=== PATIENT | female | born 1990 | race Caucasian/White ===

== ENCOUNTER 2023-03-05 13:50 | Inpatient (IN) | payer BC, SELFPAY ==
[2023-03-05] VITALS (44 sets, daily range): BP systolic 127–160; BP diastolic 71–103; PULSE 81–105; TEMP 35.9–37.3; O2SAT 98–100; BMI 31.8
[2023-03-05 15:14] LABS: Absolute Neutrophil Count 7.9 X10^3/uL (2.0-7.7); Basophil# 0.02 X10^3/uL; Basophil% 0.2 % (0-1); Eosinophil# 0.03 X10^3/uL; Eosinophils% 0.3 % (0-5); Hematocrit 39.3 % (37-47); Hemoglobin 12.9 g/dL (12.0-15.0); Lymphocyte % 18.2 % (19-41); Mean Corp Hgb Conc 32.8 g/dL (32-36); Mean Corpuscular Hgb 30.5 pg (27.0-32.0); Mean Corpuscular Volume 92.9 fL (81-99); Mean Platelet Vol. 10.4 fl (6.2-12.0); Monocyte# 0.58 X10^3/uL; Monocyte% 5.6 % (0-10); NRBC Flagged by Analyzer 0 % (0-5); Neutrophil # 7.85 X10^3/uL (2.7-7.7); Neutrophil % 75.1 % (47-70); Platelet Count 259 K/mm3 (150-450); RBC Distribution Width CV 12.9 % (11.6-14.6); RBC Distribution Width SD 43.7 fl (35.1-43.9); Red Blood Count 4.23 M/mm3 (4.2-5.4); White Blood Count 10.4 K/mm3 (4.4-11.0)
[2023-03-05 15:27] LABS: AST(SGOT) 13 U/L (15-37); Alanine Aminotransfer ALT/SGPT 8 U/L (13-56); Creatinine, Serum 0.72 mg/dL (0.55-1.02); EST Glomerular Filtration Rate 100 mL/min (>60); Est Glom Filt Rate - Afr Amer 121 mL/min (>60); Estimated Creatinine Clearance 118.31 ml/min; Uric Acid 4.7 mg/dL (2.6-6.0)
[2023-03-05 15:29] LABS: Protein, Urine (Random) 12.1 mg/dL (<11.9); Protein:Creat Ratio 297 mg/g CRE (0-200)
[2023-03-05] MEDS: Lactated Ringers 1,000 ML 50 ML IV (15:30)
[2023-03-05 15:47] LABS: Syphilis Antibodies Non-reactive
--- NOTE | 2023-03-05 15:56 | HP.PCM.OB_ITS ---
HPI - General General Date of Admission: 03/05/23 HPI Narrative EDMOND SIMONS, is a 33 F who presents at 40w3d for medically indicated induction of labor for elevated blood pressure. Denies headache, visual changes, RUQ pain. Maternal Data Information USHA Calculator Estimated Delivery Date Method Current WG Current Estimate 03/02/23 Manual 40w 3d PFSH PFSH Medical History (Updated 03/05/23 @ 16:32 by Opal Coates CNM) Autoimmune disease Gestational HTN Thyroid disorder Home Medications levothyroxine 75 mcg tablet 75 mcg PO DAILY thyroid 03/05/23 [History Last Taken 03/05/23 06:00] mv-min [id number] PO 03/05/23 [History Last Taken 03/05/23 06:00] Allergy/AdvReac Type Severity Reaction Status Date / Time Penicillins Allergy Mild Rash Verified 03/05/23 14:30 Surgical History (Updated 03/05/23 @ 15:38 by Herlinda Garland) History of surgery Social History Smoking Status: Never smoker History Elective abortions Hx Para 1 Spontaneous abortions Hx # Term Pregnancies Ectopic pregnancies Hx # Pregnancies Multiple births # of living children NST FHR Rate Baby A Baseline: 125 Variability:: Moderate Accelerations:: 15 x 15 Decelerations:: None FHR Category:: Category I Uterine Activity:: None Vital Signs Vital Signs Vital Signs: 03/05/23 14:58 03/05/23 14:58 03/05/23 14:59 Temperature Temperature Source Temporal Pulse Rate 94 Blood Pressure 129/90 H BP Systolic 129 BP Diastolic 90 03/05/23 14:59 Temperature 98.0 F Temperature Source Pulse Rate Blood Pressure BP Systolic BP Diastolic Weight Weight: 216 lb Body Mass Index (BMI) 31.8 Physical Exam Const alert and oriented x3 General Appearance: cooperative Orientation / Consciousness: awake, oriented to person, oriented to place and oriented to time Exam Limitations: no limitations HEENT normocephalic Head and Scalp: normal to inspection, normocephalic and atraumatic Face and Sinus: normal facial exam Eyes General Eye: normal appearance of both eyes Neck full ROM Chest Chest: symmetrical chest wall rise Resp normal respiratory effort and normal air movement Auscultation: clear to auscultation bilaterally Cardio regular rate, regular rhythm, S1 normal heart sound, S2 normal heart sound, no murmurs, no rub, no gallops and no clicks GI normal to inspection, nondistended, normoactive bowel sounds and non-tender appearance of the vagina normal Bladder / Kidney Exam: no CVA tenderness Manual OB Exam: presentation cephalic, dilated 3cm, effaced 80%, station - 2 and other carmichael catheter with stylus inserted through cervix without difficulty. Amniotic Fluid: no amniotic fluid noted Back/Spine normal ROM Extremity normal to inspection and full ROM Skin no rashes or lesions noted Neuro oriented x3, CN's II-XII intact bilaterally and moves all extremities Sensorium / Orientation: awake, alert and oriented to person Motor Exam: clonus absent Deep Tendon Reflexes: Rt Patellar (L4): 2+ and Lt Patellar (L4): 2+ Labs Labs Labs: Blood Type Pending Antibody Screen Pending Hct 39.3 % (37-47) Hgb 12.9 g/dL (12.0-15.0) Syphilis Total Ab Non-reactive RPR nonreactive Rubella immune HBsAG negative HepC negative HIV non reactive A positive GBS positive, PCN allergic-hives GC/CT negative Assessment & Plan (1) Encounter for induction of labor: (2) 40 weeks gestation of : PLAN: Plan 1) Admit to labor and delivery 2) Routine labs 3) Pitocin and carmichael for induction of labor 4) GBS positive, PCN allergy-hives. Ancef for antibiotic 5) Continuous EFM 6) Preeclampsia labs 7) Dr.James cannon physician and notified of patient status.
[2023-03-05] MEDS: 0.9% Normal Saline Single 100 ML IV.SOLN. INTRA-UTER (16:00)
[2023-03-05] MEDS: Cefazolin 2 GM in 0.9% Normal Saline (100mL Bag) 100 ML IV (16:12)
[2023-03-05] MEDS: Oxytocin 15 Units/NS 250ml 15 UNITS/250 ML IV.SOLN 2 UNITS IV (16:21)
--- NOTE | 2023-03-05 20:32 | PCM.PN.OB ---
Subjective Subjective Moving up in room, at bedside for support. Coping well, unmedicated. Objective Data Objective Data Vital Signs: Vital Signs Temp Pulse BP Pulse Ox 98.7 F 94 145/99 H 98 03/05/23 20:19 03/05/23 20:28 03/05/23 20:28 03/05/23 20:19 Weight: 216 lb Body Mass Index (BMI) 31.8 Intake & Output: Intake and Output for Last 24 Hours 03/03/23 03/04/23 03/05/23 23:59 23:59 23:59 Intake Total 169.64 / 169.64 Output Total 200 / 200 Balance -30.36 / -30.36 Lab / Micro Data 03/05/23 14:48 03/05/23 14:48 Labs: Laboratory Results - last 24 hr 03/05/23 14:48: WBC 10.4, RBC 4.23, Hgb 12.9, Hct 39.3, MCV 92.9, MCH 30.5, MCHC 32.8, RDW Std Deviation 43.7, RDW Coeff of Elisabeth 12.9, Plt Count 259, MPV 10.4, Immature Gran % (Auto) 0.600, Neut % (Auto) 75.1 H, Lymph % (Auto) 18.2 L, [place] % (Auto) 5.6, Eos % (Auto) 0.3, Baso % (Auto) 0.2, Absolute Neuts (auto) 7.9 H, Absolute Lymphs (auto) 1.90, Nucleated RBC % 0, Creatinine 0.72, Estim Creat Clear Calc 118.31, Est GFR (MDRD) Af Amer 121, Est GFR (MDRD) Non-Af 100, Uric Acid 4.7, AST 13 L, ALT 8 L, U Random Total Protein 12.1 H, Urine Creatinine 40.80, Protein/Creatinin Ratio 297 H, Syphilis Total Ab Non-reactive, Blood Type A POSITIVE, Antibody Screen NEGATIVE Physical Exam Manual OB Exam: presentation cephalic, dilated 6, effaced 80, station 0 and other AROM Amniotic Fluid: clear amniotic fluid NST FHR Rate Baby A Baseline: 135 Variability:: Moderate Accelerations:: 15 x 15 Decelerations:: Variable FHR Category:: Category II Uterine Activity:: every 2-3 minutes Assessment & Plan (1) Gestational HTN: (2) 40 weeks gestation of : (3) Encounter for induction of labor: PLAN: Plan 1) Amniotomy, clear fluid 2) GBS prophylaxis with Ancef 3) Pitocin for induction, continue active management 4) updated and collaborative physician.
[2023-03-05] MEDS: Lidocaine 1% (20 ml mdv) 20 ML Vial INFILT (21:10)
--- NOTE | 2023-03-05 21:17 | EX.PCM.OBRPT ---
Maternal Data Information USHA Calculator Estimated Delivery Date Method Current WG Current Estimate 03/02/23 Manual 40w 3d Vaginal Delivery Maternal Presentation Maternal Presentation: Medically Indicated Induction Maternal Presentation: GHTN Type of Induction: Pitocin and Mcallister Bulb Operative Information Date of Procedure: 03/05/23 Pre-Operative Diagnosis: Gestational Hypertension Post-Operative Diagnosis: , first degree perineal laceration Surgery / Procedure Performed: Spontaneous Vaginal Delivery Type of Anesthesia: Local with 1% Lidocaine Estimated Blood Loss: 250 ml Time of Delivery: 20:54 Findings Description of Procedure: Progressed to complete with urge to push, unmedicated. of viable female over first degree perineal laceration. APGARS 8,9 respectively. Infant head delivered with body immediately forthcoming. Placed on maternal abdomen, strong cry. Mouth and nares suctioned for secretions. Pitocin started for active 3rd stage management. Cord doubly clamped and cut by FOB after pulsations ceased, delayed cord clamping. Placenta delivered intact via barrera, 3 vessel cord intact. Perineum inspected and revealed 1st degree perineal laceration. Repaired with 3.0 vicryl rapide and lidocaine. Fundus firm and hemostasis achieved. EBL 250ml. Mom and baby stable. Family bonding well. notified of delivery. Presentation: Vertex Amniotic Membrane Rupture Type: Artificial Amniotic Fluid Description: Clear Placental Delivery Description: Spontaneous Placenta Disposition: [facility] Cord Vessel Description: 3 Vessels Cord Entanglement: None A Gender: Female (1 minute): 8 (5 minute): 8 Delayed Cord Clamping: Yes Post Vaginal Delivery Medications Given After Delivery: IV Pitocin Episiotomy Description: None Laceration: Perineal Extension/lac and 1st degree Complication Complications: None
[2023-03-05] MEDS: Ibuprofen 600 MG Tablet PO (21:28)
[2023-03-05] MEDS: Oxytocin 15 Units/NS 250ml 15 UNITS/250 ML IV.SOLN 83 UNITS IV (21:31)
[2023-03-06] MEDS: 0.9% Saline Lock 10 ML Syringe IV (00:36)
[2023-03-06] MEDS: Benzocaine/Lanolin/Aloe Vera 1 SPRAY EACH TOPICAL (00:36)
[2023-03-06] MEDS: Acetaminophen 500 MG Tablet 1000 MG PO ×4 (00:36→20:58)
--- NOTE | 2023-03-06 02:35 | NURSING ---
report given to chart RN. that RN to assume care of couplet at this time.
[2023-03-06 03:00] VITALS: BP 125/82; PULSE 91; RESP 15; TEMP 36.6; O2SAT 98
[2023-03-06] MEDS: Ibuprofen 600 MG Tablet PO ×4 (03:44→23:29)
[2023-03-06 07:50] VITALS: BP 130/88; PULSE 88; RESP 18; TEMP 36.4; O2SAT 98
--- NOTE | 2023-03-06 08:41 | PCM.PN.OB ---
Subjective Subjective Patient seen at bedside. Feeling good. Denies any pain. Ambulating and voiding without difficulty. Lochia decreasing. Objective Data Objective Data Vital Signs: Vital Signs Temp Pulse Resp BP Pulse Ox O2 Del Method 97.5 F L 88 18 130/88 H 98 Room Air 03/06/23 07:50 03/06/23 07:50 03/06/23 07:50 03/06/23 07:50 03/06/23 07:50 03/06/23 08:32 Oxygen Delivery Method Room Air Weight: 216 lb Body Mass Index (BMI) 31.8 Intake & Output: Intake and Output for Last 24 Hours 03/04/23 03/05/23 03/06/23 23:59 23:59 23:59 Intake Total 1170.85 / 1170.85 250 / 250 Output Total 450 / 450 Balance 720.85 / 720.85 250 / 250 Lab / Micro Data 03/05/23 14:48 03/05/23 14:48 Labs: Laboratory Results - last 24 hr 03/05/23 14:48: WBC 10.4, RBC 4.23, Hgb 12.9, Hct 39.3, MCV 92.9, MCH 30.5, MCHC 32.8, RDW Std Deviation 43.7, RDW Coeff of Elisabeth 12.9, Plt Count 259, MPV 10.4, Immature Gran % (Auto) 0.600, Neut % (Auto) 75.1 H, Lymph % (Auto) 18.2 L, [place] % (Auto) 5.6, Eos % (Auto) 0.3, Baso % (Auto) 0.2, Absolute Neuts (auto) 7.9 H, Absolute Lymphs (auto) 1.90, Nucleated RBC % 0, Creatinine 0.72, Estim Creat Clear Calc 118.31, Est GFR (MDRD) Af Amer 121, Est GFR (MDRD) Non-Af 100, Uric Acid 4.7, AST 13 L, ALT 8 L, U Random Total Protein 12.1 H, Urine Creatinine 40.80, Protein/Creatinin Ratio 297 H, Syphilis Total Ab Non-reactive, Blood Type A POSITIVE, Antibody Screen NEGATIVE Physical Exam Const alert and no apparent distress General Appearance: cooperative and comfortable Exam Limitations: no limitations HEENT normocephalic Eyes General Eye: normal appearance of both eyes Neck full ROM General: normal visual inspection Chest Chest: symmetrical chest wall rise Resp normal respiratory effort and normal air movement Effort and Inspection: symmetric chest movement Auscultation: clear to auscultation bilaterally Cardio regular rate and regular rhythm GI normal to inspection, nondistended, normoactive bowel sounds Back/Spine normal ROM Extremity full ROM and no calf tenderness General Extremity: normal exam except as noted Skin no rashes or lesions noted Neuro CN's II-XII intact bilaterally Psych mental status grossly normal Assessment & Plan (1) (spontaneous vaginal delivery): (2) Care and examination of lactating mother: (3) Gestational HTN: PLAN: Plan PPD 1 Routine care BP today 130/88- Patient denies any headache, vision changes, SOB, CP or RUQ pain Continue to monitor BP Anticipate discharge home tomorrow
[2023-03-06 12:45] VITALS: BP 129/82; PULSE 84; RESP 16; TEMP 36.8; O2SAT 98
[2023-03-06 16:19] VITALS: BP 133/84; PULSE 90; RESP 16; TEMP 36.7
[2023-03-06 20:50] VITALS: BP 113/70; PULSE 87; RESP 21; TEMP 36.8; O2SAT 98
[2023-03-07 02:31] VITALS: BP 122/68; PULSE 79; RESP 16; TEMP 36.4; O2SAT 98
[2023-03-07] MEDS: Acetaminophen 500 MG Tablet 1000 MG PO ×2 (03:44→10:19)
[2023-03-07] MEDS: Ibuprofen 600 MG Tablet PO (06:32)
[2023-03-07 08:12] VITALS: BP 126/88; PULSE 91; RESP 18; TEMP 36.4; O2SAT 99
--- NOTE | 2023-03-07 09:51 | PCM.PROGNOTE ---
Subjective Subjective patient seen at bedside, doing well. Patient reports good pain control. lochia mild. Objective Data Objective Data Vital Signs: Vital Signs Temp Pulse Resp BP Pulse Ox O2 Del Method 97.5 F L 91 18 126/88 H 99 Room Air 03/07/23 08:12 03/07/23 08:12 03/07/23 08:12 03/07/23 08:12 03/07/23 08:12 03/07/23 08:12 Oxygen Delivery Method Room Air Weight: 97.976 kg Body Mass Index (BMI) 31.8 Intake & Output: Intake and Output for Last 24 Hours 03/05/23 03/06/23 03/07/23 23:59 23:59 23:59 Intake Total 1170.85 / 1170.85 250 / 250 Output Total 450 / 450 Balance 720.85 / 720.85 250 / 250 Lab / Micro Data 03/05/23 14:48 03/05/23 14:48 Physical Exam Const alert and oriented x3 General Appearance: cooperative HEENT normocephalic Neck General: normal visual inspection GI soft to palpation and non-distended GI Narrative: Fundus firm Extremity normal to inspection and no calf tenderness Skin no rashes or lesions noted Neuro oriented x3 and CN's II-XII intact bilaterally Psych mental status grossly normal Assessment & Plan Assessment/Plan (1) (spontaneous vaginal delivery): (2) Gestational HTN: (3) Care and examination of lactating mother: PLAN: Plan PPD#2 , Doing well Routine care pain mgmt ambulation BPs - well controlled- pt advised to monitor at home and when to call. Advised on S/Sx of pRE E and when to call or return to hospital. Has follow visit next week. dc home
--- NOTE | 2023-03-07 09:52 | DCINST_ITS ---
Discharge Instructions Diet Discharge Diet: No restrictions Activity May resume sexual activity in: 6-8 weeks Dressing / Incision Call your doctor if you observe: Fever of 101 or Higher, Inability to urinate, Using more than 1 pad per hour and Uncontrolled pain Follow Up Care Please Follow Up With: Deanne Farias MD When: 1-2 weeks post and again at 6 weeks post . [phone] Test Results: Test results from this visit will be discussed in further detail at your follow- up appointment, if applicable. Discharge Plan Admission Admit Date/Time: 03/05/23 13:50 Attending Provider: Opal Coates Primary Care Provider: Imtiaz Gallegos Discharge Orders/Prescriptions Prescriptions: New acetaminophen 500 mg Tablet 1,000 mg PO Q6H PRN PRN (Reason: Pain 1-10 Or Fever) Qty: 0 0RF ibuprofen 600 mg Tablet 600 mg PO Q6H PRN PRN (Reason: Pain Score 1-3) Qty: 0 0RF Continued levothyroxine 75 mcg tablet 75 mcg PO DAILY Patient Comments: take 1 tablet by mouth every morning ON AN EMPTY STOMACH Discontinued mv-min [id number] [Alive Daily Support ] PO Referrals / Follow Up: Imtiaz Gallegos DO [Primary Care Provider] - Disposition Disposition (needs filled in before D/C Order can be placed): Home, Self Care
== END 2023-03-07 11:30 | disposition home or self-care (01) | DRG 807 ==
PROVIDERS: Admitting Provider Advanced Practice Midwife; PCP Student in an Organized Health Care Education/Training Program; Visit Provider Advanced Practice Midwife
DX: O13.4 Gestational [pregnancy-induced] hypertension without significant proteinuria, complicating childbirth (principal); Z37.0 Single live birth; O70.0 First degree perineal laceration during delivery; O99.824 Streptococcus B carrier state complicating childbirth; Z3A.40 40 weeks gestation of pregnancy
CPT/HCPCS: 59025; 59050; 82565; 82570; 84156; 84450; 84460; 84550; 85025; 86780; 86850; 86900; 86901; 99221; J7120; A4216; G0378

== ENCOUNTER 2025-03-03 07:40 | Inpatient (IN) | payer OTHER, SELFPAY ==
[2025-03-03] VITALS (16 sets, daily range): BP systolic 124–142; BP diastolic 70–92; PULSE 78–108; RESP 16–17; TEMP 36.2–37.2; O2SAT 96–98; BMI 31.1
[2025-03-03] MEDS: Lactated Ringers 1,000 ML 50 ML IV (08:02)
[2025-03-03] MEDS: Oxytocin 15 Units/NS 250ml 15 UNITS/250 ML IV.SOLN 2 UNITS IV (08:03)
[2025-03-03 08:09] LABS: Hematocrit 38.0 % (37-47); Hemoglobin 13.4 g/dL (12.0-15.0); Immature Granulocytes Count 0.050 X10^3/uL (0.0-0.0); Mean Corp Hgb Conc 35.3 g/dL (32-36); Mean Corpuscular Volume 89.6 fL (81-99); Mean Platelet Vol. 9.4 fl (6.2-12.0); NRBC Flagged by Analyzer 0 % (0-5); Platelet Count 239 K/mm3 (150-450); RBC Distribution Width CV 13.2 % (11.6-14.6); RBC Distribution Width SD 43.4 fl (35.1-43.9); Red Blood Count 4.24 M/mm3 (4.2-5.4); White Blood Count 6.7 K/mm3 (4.4-11.0)
--- NOTE | 2025-03-03 08:30 | PCM.HP.OB ---
HPI - General General Date of Admission: 03/03/25 HPI Narrative EDMOND SIMONS, is a 35 F at 38.6 weeks gestation who presents for induction of labor for GDM A2. Maternal Data Information USHA Calculator Estimated Delivery Date Method Current WG Current Estimate 03/11/25 Manual 38w 6d PFSH PFSH Medical History (Updated 03/03/25 @ 08:33 by Ashlee Olvera CNM) Thyroid disorder Autoimmune disease Gestational HTN Home Medications ?Medication ?Instructions ?Recorded ?Last Taken ?Type levothyroxine 75 mcg tablet 75 mcg PO DAILY thyroid 03/05/23 03/05/23 06:00 History acetaminophen 500 mg tablet 1,000 mg (2 x 500 mg) PO Q6H PRN 03/07/23 Unknown Rx PRN Pain 1-10 Or Fever #0 tabs ibuprofen 600 mg tablet 600 mg PO Q6H PRN PRN Pain Score 03/07/23 Unknown Rx 1-3 #0 tabs Allergy/AdvReac Type Severity Reaction Status Date / Time No Known Allergies Allergy Verified 03/03/25 07:39 Surgical History (Updated 03/05/23 @ 15:38 by Herlinda Garland) History of surgery Social History Smoking Status: Never smoker History Elective abortions Hx Para 2 Spontaneous abortions Hx # Term Pregnancies Ectopic pregnancies Hx # Pregnancies Multiple births # of living children NST FHR Rate Baby A Baseline: 140 Variability:: Moderate Accelerations:: 15 x 15 Decelerations:: None NST Reactive:: Yes FHR Category:: Category I ROS Eyes Eyes: Denies blurry vision, change in vision or spots in vision ENT HEENT: Denies dizziness or headache(s) Cardiovascular Cardiovascular: Denies abdominal pain, chest pain or dyspnea Respiratory/Chest Respiratory/Chest: Denies cough, dyspnea, shortness of breath at rest or shortness of breath with exertion Gastrointestinal Gastrointestinal: Denies abdominal pain, diarrhea or vomiting Genitourinary Genitourinary: Denies change in urinary stream, difficulty urinating or dysuria Musculoskeletal Musculoskeletal: Reports none Integumentary Integumentary: Denies rash Neurologic Neurologic: Denies dizziness, headache(s), memory loss or weakness Psychiatric Psychiatric: Reports none Vital Signs Vital Signs Vital Signs: 03/03/25 07:53 03/03/25 07:53 03/03/25 07:53 Temperature Temperature Source Pulse Rate 92 Respiratory Rate Blood Pressure 142/92 H BP Systolic 142 BP Diastolic 92 Pulse Ox 98 03/03/25 07:53 03/03/25 07:53 03/03/25 07:53 Temperature 97.1 F L Temperature Source Temporal Pulse Rate Respiratory Rate 16 Blood Pressure BP Systolic BP Diastolic Pulse Ox Weight Weight: 211 lb Body Mass Index (BMI) 31.1 Physical Exam Const alert, oriented x3 and no apparent distress General Appearance: cooperative Orientation / Consciousness: awake Exam Limitations: no limitations HEENT normocephalic Head and Scalp: normal to inspection Eyes General Eye: normal appearance of both eyes Neck full ROM and no lymphadenopathy Lymph Lymphatic: no lymphadenopathy noted Chest inspection of chest normal Resp normal respiratory effort, normal air movement and clear to auscultation bilaterally Effort and Inspection: able to speak in complete sentences and symmetric chest movement Cardio regular rate and regular rhythm GI normal to inspection, nondistended, normoactive bowel sounds Manual OB Exam: presentation cephalic Back/Spine normal ROM Extremity full ROM and no calf tenderness Skin no rashes or lesions noted General Skin Exam: no breakdown Neuro oriented x3 and CN's II-XII intact bilaterally Psych mental status grossly normal and thought process normal Labs Labs Labs: Blood Type A POSITIVE Antibody Screen NEGATIVE Hct, (37-47) 38.0 % Hgb, (12.0-15.0) 13.4 g/dL Syphilis Total Ab Non-reactive Rhogam given: No GBS negative Assessment & Plan (1) 38 weeks gestation of : (2) GDM, class A2: (3) Autoimmune disease: COMMENT: hashimotos (4) History of gestational hypertension: (5) Penicillin allergy: PLAN: Plan Admit to labor and delivery CE 3/-3 Start Pitocin at 2 mu/min and increase per orders Desires unmedicated labor and delivery Declines AROM at this time Dr. Mason notified of admission and will take over management
[2025-03-03 08:55] LABS: Syphilis Antibodies Nonreactive (Nonreactive)
--- NOTE | 2025-03-03 11:57 | PCM.PN.BLA ---
Progress Note pt seen at bedside, VE: 4.5/80-2- AROM performed- clear fluid. continue pitocin. anticipate
--- NOTE | 2025-03-03 14:09 | EX.PCM.OBVAG ---
Maternal Data Information USHA Calculator Estimated Delivery Date Method Current WG Current Estimate 03/11/25 Manual 38w 6d Gestational age: 38.6 Vaginal Delivery Maternal Presentation Maternal Presentation: Medically Indicated Induction Type of Induction: Pitocin and Amniotomy Medical Reason for Induction: Maternal Medical Condition: list: (GDMA2 ) Vaginal Delivery Information Procedure Performed: Spontaneous Vaginal Delivery Surgeon/Practitioner: Deanne Farias Date of Procedure: 03/03/25 Pre-Procedure Diagnosis: 38.6 weeks, GDMA2 Post-Procedure Diagnosis: Same, live male Type of anesthesia: Spinal Estimated Blood Loss: 150 Time of Delivery: 13:54 Findings Description of procedure: Patient progressed to fully dilated. Good maternal pushing efforts delivered the head to loose nuchal's were appreciated they were reduced. At this time and the anterior and posterior shoulder delivered followed by the rest the infant's body without delay. The was placed on the mother's chest for immediate skin to skin. Delayed cord clamping was performed. Cord was then clamped and cut Pitocin was then started and the placenta delivered intact without complication. First-degree perineal laceration appreciated it was repaired using a 3-0 Rapide suture to gain adequate hemostasis. No complications with delivery. Presentation: Vertex Amniotic Membrane Rupture Type: Artificial Amniotic Fluid Description: Clear Placental Delivery Description: Spontaneous Placenta Disposition: [facility] Specimen collected: No Cord Vessel Description: 3 Vessels Cord Entanglement: Around neck x 2, loose Nuchal Cord Compression: Without compression Infant A Gender: Male (1 minute): 9 (5 minute): 9 Delayed Cord Clamping: Yes Spinning Frame Cleaner mold changer: No Post Vaginal Deli Medications given after delivery: IV Pitocin Episiotomy Description: None Laceration: Perineal Extension/lac and 2nd degree Complication Complications: No
[2025-03-03] MEDS: Oxytocin 15 Units/NS 250ml 15 UNITS/250 ML IV.SOLN 83 UNITS IV (14:25)
[2025-03-03] MEDS: Lidocaine 1% (20 ml mdv) 20 ML Vial INFILT (15:31)
[2025-03-04 01:37] VITALS: BP 108/69; PULSE 86; RESP 16; TEMP 36.2; O2SAT 97
[2025-03-04 04:25] VITALS: BP 117/83; PULSE 88; RESP 16; TEMP 36.1; O2SAT 99
--- NOTE | 2025-03-04 07:00 | PCM.DC.SUM ---
Providers Date of Admission: 03/03/25 Primary Care Physician: Dr. Imtiaz Gallegos, DO Reason For Visit: INDUCTION FOR LABOR & DELIVERY Diagnosis Discharge Diagnosis (1) 38 weeks gestation of : Status: Acute Code(s): Z3A.38 - 38 weeks gestation of (2) GDM, class A2: Status: Acute Code(s): O24.419 - Gestational diabetes mellitus in , unspecified control (3) Autoimmune disease: Status: Acute Code(s): M35.9 - Systemic involvement of connective tissue, unspecified (4) History of gestational hypertension: Status: Acute Code(s): Z87.59 - Personal history of other complications of , childbirth and the puerperium (5) Penicillin allergy: Status: Acute Code(s): Z88.0 - Allergy status to penicillin Plan Admit to labor and delivery CE /-3 Start Pitocin at 2 mu/min and increase per orders Desires unmedicated labor and delivery Declines AROM at this time Dr. Mason notified of admission and will take over management Medications at Discharge Home Medications levothyroxine 75 mcg tablet 75 mcg PO DAILY thyroid 03/05/23 acetaminophen 500 mg tablet 1,000 mg (2 x 500 mg) PO Q6H PRN PRN Pain 1-10 Or Fever #0 tabs 03/07/23 ibuprofen 600 mg tablet 600 mg PO Q6H PRN PRN Pain Score 1-3 #0 tabs 03/07/23 acetaminophen 500 mg tablet 1,000 mg (2 x 500 mg) PO Q6H PRN PRN Pain 1-10 Or Fever #0 tabs 03/04/25 ibuprofen 600 mg tablet 600 mg PO Q6H PRN PRN Pain Score 1-10 #0 tabs 03/04/25 Hospital Course Operations None Procedures None Summary of Care Provided Minutes Spent on Discharge: 15 Hospital Course: Patient had vaginal delivery. Hospital course was uneventful. Physical Exam Narrative Patient seen at bedside. Denies pain. Ambulating and voiding without difficulty. Lochia decreased. Desires discharge home today. Const alert and oriented x3 General Appearance: Negative for in distress HEENT normocephalic Eyes General Eye: normal appearance of both eyes Neck General: normal visual inspection Chest Chest: symmetrical chest wall rise Resp normal respiratory effort and normal air movement Effort and Inspection: symmetric chest movement; Negative for tachypneic Auscultation: clear to auscultation bilaterally Cardio regular rate and regular rhythm Peripheral Pulses: pulses 2+ throughout GI normal to inspection, nondistended, normoactive bowel sounds Narrative: Ice to perineum OB / External & Speculum: vaginal bleeding and other Lochia decreasing Uterus Palpation: uterus fundus firm (Below U) Extremity normal to inspection, full ROM and normal capillary refill Skin no rashes or lesions noted Neuro oriented x3, CN's II-XII intact bilaterally and gait normal Psych mental status grossly normal, thought process normal and activity/motor behavior normal Weight / BMI Weight Weight: 211 lb Body Mass Index (BMI) 31.1 ABG / Lab / Microbiology Data 03/03/25 07:45 Laboratory: Laboratory Results - last 24 hr 03/03/25 07:45: WBC 6.7, RBC 4.24, Hgb 13.4, Hct 38.0, MCV 89.6, MCH 31.6, MCHC 35.3, RDW Std Deviation 43.4, RDW Coeff of Elisabeth 13.2, Plt Count 239, MPV 9.4, Immature Gran % (Auto) 0.700, Neut % (Auto) 65.9, Lymph % (Auto) 24.3, [place] % (Auto) 7.8, Eos % (Auto) 1.0, Baso % (Auto) 0.3, Absolute Neuts (auto) 4.4, Absolute Lymphs (auto) 1.63, Nucleated RBC % 0, Syphilis Total Ab Nonreactive, Blood Type A POSITIVE, Antibody Screen NEGATIVE 03/03/25 08:25: POC Glucose 102 03/03/25 09:39: POC Glucose 97 03/03/25 14:18: POC Glucose 137 H 03/04/25 06:09: POC Glucose 101 D/C Instructions Discharge Activity: Return to Normal Activity, No Restrictions, May Drive, May Shower and May Take a Tub Bath (Warm water only. No bath salts, soaps, bubbles) May resume sexual activity in: 6-8 weeks Weight Bearing Status: Weight bearing as tolerated Call your doctor if you observe: Fever of 101 or Higher, Inability to urinate, Using more than 1 pad per hour, Shortness of breath, Dizziness, Chest pain, Calf discomfort and Uncontrolled pain DC O2, CPAP, BIPAP Needs Home O2 Discharge instructions: No Please Follow Up With: [facility] KUHN When: 2 weeks in office or virtual Meaningful Use Info Meaningful Use Meaningful Use Diagnoses (Choose all that apply): None applicable Discharge Plan Admission Admit Date/Time: 03/03/25 07:40 Primary Reason for Your Visit: Labor and Delivery Attending Provider: Ashlee Olvera Primary Care Provider: Imtiaz Gallegos Discharge Orders/Prescriptions Prescriptions: New acetaminophen 500 mg Tablet 1,000 mg PO Q6H PRN PRN (Reason: Pain 1-10 Or Fever) Qty: 0 0RF ibuprofen 600 mg Tablet 600 mg PO Q6H PRN PRN (Reason: Pain Score 1-10) Qty: 0 0RF Continued levothyroxine 75 mcg tablet 75 mcg PO DAILY Patient Comments: take 1 tablet by mouth every morning ON AN EMPTY STOMACH No Action acetaminophen 500 mg Tablet 1,000 mg PO Q6H PRN PRN (Reason: Pain 1-10 Or Fever) Qty: 0 0RF ibuprofen 600 mg Tablet 600 mg PO Q6H PRN PRN (Reason: Pain Score 1-3) Qty: 0 0RF Referrals / Follow Up: Imtiaz Gallegos DO [Primary Care Provider, Medical] Disposition Disposition (needs filled in before D/C Order can be placed): Home, Self Care
[2025-03-04 08:00] VITALS: BP 116/72; PULSE 84; RESP 16; TEMP 36.9; O2SAT 98
[2025-03-04] MEDS: GLYCERIN/WITCH HAZEL (TUCKS) MED..PAD 1 EACH TOPICAL (08:06)
[2025-03-04 12:30] VITALS: BP 113/78; PULSE 76; RESP 16; TEMP 37.1; O2SAT 98
[2025-03-04] MEDS: SELF ADMINISTRATION OF MEDS 1 EACH NOTE (13:00)
--- NOTE | 2025-03-08 13:57 | NURSING ---
f/up call attempted, no ans, LVM
== END 2025-03-04 15:35 | disposition home or self-care (01) | DRG 807 ==
PROVIDERS: Admitting Provider Advanced Practice Midwife; PCP Student in an Organized Health Care Education/Training Program; Referring Provider Advanced Practice Midwife; Visit Provider Advanced Practice Midwife
DX: O24.429 Gestational diabetes mellitus in childbirth, unspecified control (principal); Z37.0 Single live birth; E06.3 Autoimmune thyroiditis; O99.284 Endocrine, nutritional and metabolic diseases complicating childbirth; O70.0 First degree perineal laceration during delivery; O69.81X0 Labor and delivery complicated by cord around neck, without compression, not applicable or unspecified; Z3A.38 38 weeks gestation of pregnancy; Z79.890 Hormone replacement therapy; Z88.0 Allergy status to penicillin; Z87.59 Personal history of other complications of pregnancy, childbirth and the puerperium
CPT/HCPCS: 59025; 59050; 82962; 85025; 86780; 86850; 86900; 86901; 99221; G0378